=== PATIENT | female | born 1970 | race Caucasian/White ===

== ENCOUNTER 2017-02-14 21:32 | Emergency (ER) | payer OTHER ==
[~2017-02-14] VITALS: Ht 175.3 cm; Wt 72.6 kg
--- NOTE | ~2017-02-14 | CT2 ---
[facility]. [facility] A Service of [facility] RADIOLOGY TEXT RESULTS PATIENT: YE FRASER LOCATION: SED : [birth year] UNIT #: [id number] AGE: [address]: Ernie Vaca MD SEX: F ORDER DR: [id number] [place] [id number] E MR#: [id number] Acc #: [id number] NAME: YE FRASER : 1970 SEX: F STUDY DATE/TIME: 02/14/2017 22:57 UNIT: SED ROOM: STUDY DESCRIPTION: CT Abd and Pelv W Cont Attending Physician: Ernie Vaca M.D. Ordering Physician: Ernie Vaca M.D. Primary Care Physician: [facility]. MEDICAL IMAGING REPORT This report is preliminary unless electronic signature is present. EXAM CT abdomen and pelvis with contrast. DATE 02/14/2017 HISTORY Abdominal pain with black stools for a couple of days. History of ulcerative colitis and pancreatitis. History of kidney stones. Previous hysterectomy. COMPARISON CT abdomen and pelvis with contrast, 06/18/2016. PROCEDURE 5 mm axial images from the lung bases through the lesser trochanters after intravenous contrast administration. Enteric contrast not administered. Sagittal and coronal reformatted images were obtained. This CT exam was performed with one or more of the following radiation dose reduction techniques: automatic exposure control, adjustment of mA and/or kV according to patient size, and iterative reconstruction. FINDINGS ABDOMEN FINDINGS: The appendix is normal. Limited evaluation of bowel due to lack of enteric contrast but no bowel wall thickening or inflammation is seen and there is no evidence of high-grade large or small bowel obstruction. No free air, free fluid, pneumatosis or adenopathy is evident. The lung bases are free of consolidation. The liver, gallbladder, spleen, pancreas, adrenal are normal. Small low-density lesions are present within each kidney which are technically too small to characterize but are STS. [facility] A Service of [facility] RADIOLOGY TEXT RESULTS PATIENT: YE FRASER LOCATION: SED : [birth year] UNIT #: [id number] AGE: [address]: Ernie Vaca MD SEX: F ORDER DR: statistically favored to represent cysts. PELVIS FINDINGS: The uterus is surgically absent. Urinary bladder and rectum are normal. No pelvic adenopathy or free fluid is identified. No acute osseous abnormalities. IMPRESSION 1. No acute findings in the abdomen or pelvis. There is no CT explanation for the patient's abdominal pain. 2. The appendix is normal. Dictated by... Pinky Thomas M.D. THIS IS AN ELECTRONICALLY VERIFIED REPORT Pinky Thomas M.D. at 02/15/2017 9:59 PM [facility]/natasha TD: 02/15/2017 09:25 JOB #: [id number] MEDICAL IMAGING REPORT Page 1 of 1
[~2017-02-14 21:32] MED LIST: BENTYL20 M1 PO; FAMOTIDINE PO
[2017-02-14 22:26] LABS: URINE SOURCE CLEAN CATCH
[2017-02-14 22:28] LABS: URINE APPEARANCE HAZY; URINE BILIRUBIN NEG (NEG); URINE BLOOD 1+ (NEG); URINE COLOR YELLOW; URINE GLUCOSE NEG (NORM); URINE KETONE TRACE (NEG); URINE LEUKOCYTE ESTERASE NEG (NEG); URINE NITRATE NEG (NEG); URINE PH 6.5 (5-8); URINE PROTEIN NEG (NEG)
[2017-02-14 22:30] LABS: BASOPHIL% 0.5 % (0-2.5); EOSINOPHIL# 0.1 X10e3 (0-0.7); EOSINOPHIL% 1.6 % (0.0-7.0); HEMATOCRIT 41.7 % (35.0-45.0); HEMOGLOBIN 14.2 gm/dL (12.0-16.0); LYMPHOCYTE# 3.6 X10e3 (1.0-3.5); LYMPHOCYTE% 47.2 % (17.0-45.0); MEAN CELL VOLUME 89.6 FL (83-96); MEAN CORPUSCULAR HEMOGLOBIN 30.5 PG (28-34); MEAN CORPUSCULAR HGB CONC 34.1 g/dL (30-36); MEAN PLATELET VOLUME 8.9 FL (6.5-11.5); MONOCYTE# 0.8 X10e3 (0-1.0); MONOCYTE% 9.7 % (3.0-12.0); NEUTROPHIL# 3.2 X10e3 (1.5-7.1); PLATELET COUNT 217 X10e3 (140-420); RED BLOOD COUNT 4.66 X10e (3.90-5.30); RED CELL DISTRIBUTION WIDTH 13.3 % (11.0-15.5); WHITE BLOOD COUNT 7.7 X10e3 (4.0-10.5)
[2017-02-14 22:31] LABS: DIFF IND NO
[2017-02-14 22:44] LABS: MICRO INDICATED? YES
[2017-02-14 22:45] LABS: CULTURE INDICATED? NO; URINE AMORPHOUS SEDIMENT AMORP URATES; URINE BACTERIA NEG (NEG); URINE CRYSTALS CALCIUM OXALATE /[HPF]; URINE MUCUS PRESENT; URINE SQUAMOUS EPITHELIAL CELL OCCAS /[HPF]
[2017-02-14 22:49] LABS: ALBUMIN SERUM 4.3 g/dL (3.5-5.0); ALKALINE PHOSPHATASE 87 U/L (32-92); ALT (SGPT) 18 U/L (10-40); AMYLASE 23 U/L (0-46); AST (SGOT) 20 U/L (10-42); BILIRUBIN, DIRECT <0.1 mg/dL (0.0-0.2); BILIRUBIN,INDIRECT 0.6 mg/dL (0.0-0.9); BILIRUBIN,TOTAL 0.7 mg/dL (0.2-2.0); BLOOD UREA NITROGEN 13 mg/dL (9-23); BUN/CREATININE RATIO 18.57; CALCIUM SERUM 9.6 mg/dL (8.4-10.2); CARBON DIOXIDE 28 mmol/L (22-31); CHLORIDE 106 mmol/L (100-111); CREATININE SERUM 0.7 mg/dL (0.6-1.4); GLOM FILT RATE Estimated 103.2 mL/min (>60); GLUCOSE FASTING 94 mg/dL (70-110); LIPASE 24 U/L (22-51); POTASSIUM 4.2 mmol/L (3.5-5.1); PROTEIN TOTAL SERUM 7.4 g/dL (6.0-8.3); SODIUM 140 mmol/L (135-145)
== END 2017-02-15 00:21 | disposition home or self-care (01) ==
LOC: SED 21:32
PROVIDERS: Emergency Medicine
DX: K51.90 Ulcerative colitis, unspecified, without complications (principal); F17.210 Nicotine dependence, cigarettes, uncomplicated; Z90.710 Acquired absence of both cervix and uterus
CPT/HCPCS: 36415; 74177; 80048; 80076; 81003; 82150; 82270; 83690; 85025; 96361; 96374; 96375; 99284; J2405; Q9967

== ENCOUNTER 2017-02-18 17:06 | Emergency (ER) | payer OTHER ==
[~2017-02-18] VITALS: Ht 175.3 cm; Wt 63.5 kg
--- NOTE | ~2017-02-18 | CR21 ---
[facility] A Service [facility] RADIOLOGY TEXT RESULTS PATIENT: YE FRASER LOCATION: SED : [birth year] UNIT #: [id number] AGE: [address]: RAMESH CHAVEZ SEX: F ORDER DR: [id number] [place] [id number] E MR#: [id number] Acc #: [id number] NAME: YE FRASER : 1970 SEX: F STUDY DATE/TIME: 02/18/2017 17:20 UNIT: SED ROOM: STUDY DESCRIPTION: CR Ankle Min 3 Views Rt Attending Physician: (Antwan) Ramesh Chavez Ordering Physician: Calvin) Ramesh Chavez [facility] MED[facility] REPORT This report is preliminary unless electronic signature is present. EXAM Right ankle. HISTORY Right ankle, pain and swelling since yesterday. Patient stepped off the curb, rolled ankle and fell. COMMENT Three views of the right ankle are viewed. COMPARISON There is no previous. FINDINGS There is lateral soft tissue swelling. No acute fracture, dislocation or radiopaque foreign body. Small amount of dystrophic calcification likely along the plantar fascial region posteriorly. IMPRESSION 1. There is lateral soft tissue swelling but no evidence for acute fracture, dislocation or radiopaque foreign body. 2. There is some stranding in the fat around the tibiotalar joint and there might be a small tibiotalar joint effusion. There is a small amount of dystrophic calcification probably associated with the plantar fascia. Dictated by... Ellie Hobbs M.D. [facility] A Service [facility] RADIOLOGY TEXT RESULTS PATIENT: YE FRASER LOCATION: SED : [birth year] UNIT #: [id number] AGE: [address]: RAMESH CHAVEZ SEX: F ORDER DR: THIS IS AN ELECTRONICALLY VERIFIED REPORT Ellie Hobbs M.D. at 02/19/2017 7:09 AM [place] TD: 02/18/2017 22:40 JOB #: [id number] MEDICAL IMAGING REPORT Page 1 of 1
[2017-02-18] MEDS ORDERED: ZOFRAN (17:11)
[2017-02-18] MEDS ORDERED: PREDNISONE (17:11)
[2017-02-18] MEDS ORDERED: VICODIN (17:12)
[2017-02-18] MEDS ORDERED: OMEPRAZOLE20 M2 (17:12)
[2017-02-18] MEDS ORDERED: MEDROL (17:13)
== END 2017-02-18 18:54 | disposition home or self-care (01) ==
LOC: SED 17:06
DX: S93.401A Sprain of unspecified ligament of right ankle, initial encounter (principal); K85.90 Acute pancreatitis without necrosis or infection, unspecified; F17.200 Nicotine dependence, unspecified, uncomplicated; K51.90 Ulcerative colitis, unspecified, without complications; Z88.0 Allergy status to penicillin; Z88.8 Allergy status to other drugs, medicaments and biological substances; X50.1XXA Overexertion from prolonged static or awkward postures, initial encounter; Y92.009 Unspecified place in unspecified non-institutional (private) residence as the place of occurrence of the external cause
CPT/HCPCS: 29405; 73610; 99283